=== PATIENT | male | born 1975 | race Caucasian/White ===

== ENCOUNTER 2017-01-06 21:50 | Emergency (ER) | payer OTHER ==
[2017-01-06 22:07] VITALS: BP 152/98
--- NOTE | 2017-01-06 22:19 | ERNOTE ---
Upper Extremity HPI - General Extremities Pain Location: hand: right - pain in right hand after punching a refrigerator door Time Seen by Provider: 01/06/17 21:54 Source: patient Exam Limitations: no limitations - Immun/Allergies/Home Medications Immunizations: IMMUNIZATION HX Immunizations Up to Date Yes History of Influenza Vaccine No Hx Pneumococcal Vaccination No Allergies/Adverse Reactions: Allergies Allergy/AdvReac Type Severity Reaction Status Date / Time No Known Allergies Allergy Unverified 01/06/17 22:02 Home Medications: HOME MEDICATIONS HYDROcodone/ACETAMINOPHEN [[place] 5-325] 1 - 2 tab PO Q6H PRN #12 tab 01/06/17 [ Last Taken Unknown] - History of Present Illness Narrative: pt became angry and punched a refrigerator door our of anger prior to presentation to ED at home. He is here complaining of right hand pain. Review of Systems - Review of Systems Constitutional: Present: no symptoms reported EYE: Present: no symptoms reported ENT: Present: no symptoms reported Respiratory: Present: no symptoms reported Cardiology: Present: no symptoms reported Musculoskeletal: Present: See HPI Skin: Present: no symptoms reported - Patient's Past Medical History Patient History - Medical: No pertinent hx Patient History - Cardiac/Respiratory: No pertinent hx Patient History - Cancer: No Hx of Cancer Patient History - Surgical Procedures: No surgical history Patient History - Other: None - Social History Living Situations: home Psych History: No pertinent hx Smoking Status: Never smoker Alcohol Use: none Drug Use: none - Immunizations Immunizations Up to Date: Yes Hx Pneumococcal Vaccination: No History of Influenza Vaccine: No Physical Exam - Physical Exam General Appearance: Present: wd/wn, alert, no apparent distress Respiratory: Present: no respiratory distress, normal breath sounds, no accessory muscle use, chest nontender, lungs clear Cardiovascular/Chest: Present: regular rate, rhythm, no murmur, normal peripheral pulses Extremity Exam: Present: other - There is swelling of the dorsal aspect of the right hand on the medial aspect. It is tender there and making a fist is possible but painful. No open lesions noted in the corresponding region Neurological Exam: Present: alert, oriented, normal mood/affect, no motor/ sensory deficits ED Progress - Vital Signs Patient's Vital Signs:: I have reviewed the patient's vital signs. Vital Signs: Vital Signs 01/06/17 22:02 Temperature 36.5 C Pulse Rate 99 Respiratory 20 Rate Blood Pressure 152/98 O2 Sat by Pulse 99 Oximetry - X-Ray X-Ray #1 X-Ray: hand - Progress/Reassessment Chief Complaint: Upper Extremity Injury/Problem Plan - Plan Plan: Dr. Castillo was consulted with this fracture. Pt is to be placed in OCL and treated for pain and needs to be seen in ortho clinic on Saturday morning Departure Clinical Impression: Boxers fracture Qualifiers: Encounter type: initial encounter Fracture type: closed Qualified Code(s): S62.309A - Unspecified fracture of unspecified metacarpal bone, initial encounter for closed fracture - Departure Disposition: Home self-care Condition: Fair Instructions: Boxer's Fracture Prescriptions: HYDROcodone/ACETAMINOPHEN [[place] 5-325] 1 - 2 tab PO Q6H PRN #12 tab PRN Reason: Pain
== END 2017-01-06 22:37 | disposition home or self-care (01) ==
LOC: ER 21:50
PROC: 2W3EX1Z Immobilization of Right Hand using Splint (ICD-10-PCS; principal; 2017-01-06)
DX: S62.309A Unspecified fracture of unspecified metacarpal bone, initial encounter for closed fracture (principal); X83.8XXA Intentional self-harm by other specified means, initial encounter; Y93.9 Activity, unspecified; Y92.000 Kitchen of unspecified non-institutional (private) residence as the place of occurrence of the external cause; Y99.9 Unspecified external cause status